=== PATIENT | male | born 1990 | race Caucasian/White ===

== ENCOUNTER 2019-09-09 08:50 | Emergency (ER) | payer MEDICAID ==
[~2019-09-09] VITALS: Ht 177.8 cm; Wt 70.3 kg
[2019-09-09] MEDS ORDERED: IBUPROFEN 800 MG TABLET PO ONE (09:45)
[2019-09-09] MEDS ORDERED: ACETAMINOPHEN ES 500 MG TABLET PO ONE (09:45)
[2019-09-09] MEDS ORDERED: ACETAMINOPHEN ES 500 MG TABLET ONE (09:45)
[2019-09-09] MEDS ORDERED: IBUPROFEN 800 MG TABLET ONE (09:46)
--- NOTE | 2019-09-09 11:13 | NUR ---
Patient is resting comfortably on gurney while using his personal electronic device. Patient says that he feels much better.
[2019-09-09] MEDS ORDERED: OSELTAMIVIR PHOSPHATE 75 MG CAPSULE PO ONE (11:45)
--- NOTE | 2019-09-09 11:45 | NUR ---
Patient discharged to home in stable condition. Written and verbal after care instructions given to patient. Patient verbalized understanding & compliance of instructions.
== END 2019-09-09 11:47 | disposition home or self-care (01) ==
LOC: ER 08:50
DX: J10.1 Influenza due to other identified influenza virus with other respiratory manifestations (principal); J45.909 Unspecified asthma, uncomplicated; Z88.0 Allergy status to penicillin; Z88.8 Allergy status to other drugs, medicaments and biological substances
CPT/HCPCS: 87400; A4663; A9150